=== PATIENT | female | born 1990 | race Caucasian/White ===

== ENCOUNTER 2021-08-05 11:00 | Day surgery (SDC) | payer BC ==
[2021-08-04 13:53] LABS: BASOPHILS # (AUTO) 0.1 X10'3 (0-0.2); BASOPHILS % (AUTO) 1.1 % (0-1); EOSINOPHILS # (AUTO) 0.6 X10'3 (0-0.9); EOSINOPHILS % (AUTO) 10.2 % (0-6); LYMPHOCYTES % (AUTO) 33.2 % (21-51); MEAN CORPUSCULAR HEMOGLOBIN 30.6 PG (27.0-31.0); MEAN CORPUSCULAR HGB CONC 33.9 g/dL (33.0-36.5); MEAN CORPUSCULAR VOLUME 90.3 FL (78-98); MEAN PLATELET VOLUME 7.6 FL (7.4-10.4); MONOCYTES # (AUTO) 0.4 X10'3 (0-0.9); MONOCYTES % (AUTO) 6.9 % (2-12); NEUTROPHILS # (AUTO) 2.9 X10'3 (1.8-7.7); NEUTROPHILS % (AUTO) 48.6 % (42-75); PRE OP HEMATOCRIT 40.8 % (35.0-45.0); PRE OP HEMOGLOBIN 13.8 g/dL (12.0-16.0); PRE OP PLATELET COUNT 299 X10'3 (140-440); RED BLOOD COUNT 4.52 X10'6 (4.20-5.60); RED CELL DISTRIBUTION WIDTH 12.9 % (11.5-14.5)
[2021-08-04 14:12] LABS: ALBUMIN 4.2 G/DL (3.4-5.0); ALBUMIN/GLOBULIN RATIO 1.2 (1.1-1.5); ALKALINE PHOSPHATASE 67 IU/L (46-116); BLOOD UREA NITROGEN 9 MG/DL (7-18); BUN/CREATININE RATIO 12.9 (6.6-38.0); CALCIUM 8.6 MG/DL (8.5-10.1); CHLORIDE 107 MMOL/L (99-107); PRE OP ALT 18 U/L (30-65); PRE OP ANION GAP 9 (8-16); PRE OP AST 14 U/L (10-37); PRE OP BILIRUB, TOTAL 1.1 MG/DL (0.0-1.0); PRE OP GLUCOSE 85 MG/DL (70-104); PRE OP POTASSIUM 3.7 MMOL/L (3.4-5.1); PRE OP SODIUM 143 MMOL/L (135-145); TOTAL CARBON DIOXIDE 26.8 MMOL/L (24-32); TOTAL PROTEIN 7.6 G/DL (6.4-8.2); eGFR > 90 ML/MIN
[2021-08-04 14:14] LABS: HCG SERUM QL NEGATIVE
[~2021-08-05] VITALS: Ht 175.3 cm; Wt 60.0 kg
[2021-08-05] VITALS (9 sets, daily range): BP systolic 106–127; BP diastolic 62–79
[~2021-08-05 11:00] MED LIST: OMEP20CA16 PO; cefazolin/dext.iso 2gm/50ml IV ONE; famotidine 20mg tablet PO ONE; ringers solution, lacted 1,000 ML IV SCH
[2021-08-05] MEDS ORDERED: scopolamine 1.5mg patch.TD72 (72-hour patch) TD ONE (11:55)
[2021-08-05] MEDS ORDERED: scopolamine 1mg/72 hr patch TD ONE (12:05)
[2021-08-05] MEDS ORDERED: proMETHazine 25mg rectal suppository RC PRN (12:25)
[2021-08-05] MEDS ORDERED: ringers solution, lacted 1,000 ML IV SCH (12:25)
[2021-08-05] MEDS ORDERED: hydrALAZINE 20mg/ml inj. IV PRN (12:25)
[2021-08-05] MEDS ORDERED: labetalol 20mg/4ml (5mg/ml) syringe IV PRN (12:25)
[2021-08-05] MEDS ORDERED: ondansetron/PF 4mg/2ml inj IV PRN (12:25)
[2021-08-05] MEDS ORDERED: proCHLORperazine 10 MG/2 ml inj IV PRN (12:25)
[2021-08-05] MEDS ORDERED: fentaNYL/PF 50MCG/1 ML 2ML syringe IV PRN ×2 (12:25)
[2021-08-05] MEDS ORDERED: morphine 2 MG/ML inj. syringe IV PRN (12:25)
[2021-08-05] MEDS ORDERED: morphine 4 MG/ML inj SYRINge IV PRN (12:25)
[2021-08-05] MEDS ORDERED: BUPIVAcaine 0.5% inj/PF 30 ML ONE (12:58)
[2021-08-05] MEDS ORDERED: LIDOcaine 1% 30ml preserv. free vial ONE (12:58)
[2021-08-05] MEDS ORDERED: FENTANYL CITRATE/PF 50 MCG/1 ML VIAL ONE (13:10)
[2021-08-05] MEDS ORDERED: neostigmine methylsulfate 1 MG/ML 10ml vial ONE (13:11)
[2021-08-05] MEDS ORDERED: propofol inj 20 ML IV ONE (13:11)
[2021-08-05] MEDS ORDERED: sevoflurane 250ml liquid IH ONE (13:11)
[2021-08-05] MEDS ORDERED: acetaminophen 1,000mg/100ml IV 100 ML IV ONE (13:11)
[2021-08-05] MEDS ORDERED: dexamethasone sod phosphate 4mg/ml inj. ONE (13:11)
[2021-08-05] MEDS ORDERED: LIDOcaine 2% (20mg/ml) 5ml vial ONE (13:11)
[2021-08-05] MEDS ORDERED: rocuronium 10mg/ml inj IV ONE (13:11)
[2021-08-05] MEDS ORDERED: ketorolac trometh. 30mg/ml inj. ONE (13:12)
[2021-08-05] MEDS ORDERED: glycopyrrolate 0.2mg/ml inj ONE (13:13)
[2021-08-05] MEDS ORDERED: ondansetron/PF 4mg/2ml inj ONE (13:32)
[2021-08-05] MEDS ORDERED: BUPIVAcaine 0.5% inj/PF 30 ml vial IJ ONE (13:36)
--- NOTE | 2021-08-05 14:01 | NUR ---
Received from OR via [facility] IN STABLE CONDITION , accompanied by Anesthesiologist and CLEANING TEAM MEMBER report given by CLEANING TEAM MEMBER AND Anesthesiolgist. Addendum: 08/05/21 at 1502 by Luiza Christina RN Amended: Links added.
[2021-08-05] MEDS ORDERED: acetaminophen 325mg tablet PO PRN (14:10)
--- NOTE | 2021-08-05 15:41 | NUR ---
PATIENT DISCHARGED FROM PACU IN STABLE CONDITION AFTER WRITTEN AND VERBAL DISCHARGE INSTRUCTIONS GIVEN. PATIENT GAVE VERBAL UNDERSTANDING OF INSTRUCTIONS. PATIENT LEFT FACILITY VIA WHEELCHAIR WITH RN. Addendum: 08/05/21 at 1612 by Luiza Christina RN Amended: Links added.
[2021-08-05] MEDS ORDERED: ibuprofen tablet 400 MG TABLET PO SCH (17:30)
== END 2021-08-05 15:41 | disposition home or self-care (01) ==
LOC: PAS 11:00
PROVIDERS: ATTEND Surgery
DX: K42.9 Umbilical hernia without obstruction or gangrene (principal); K21.9 Gastro-esophageal reflux disease without esophagitis; Z20.822 Contact with and (suspected) exposure to COVID-19; Z79.899 Other long term (current) drug therapy; Z98.890 Other specified postprocedural states; Z88.8 Allergy status to other drugs, medicaments and biological substances; F12.90 Cannabis use, unspecified, uncomplicated; Z87.891 Personal history of nicotine dependence; Z82.61 Family history of arthritis; Z80.8 Family history of malignant neoplasm of other organs or systems; Z82.49 Family history of ischemic heart disease and other diseases of the circulatory system
CPT/HCPCS: 36415; 49585; 80053; 82948; 84703; 85025; 87635; C9803; J0131; J0780; J1885; J2405; J2704; J3010; J3490; J7030; J7120; S0020; Z7506; Z7512; A4618; A7000; J1100; J2710